=== PATIENT | female | born 1970 ===

== ENCOUNTER 2017-11-12 14:43 | Emergency (ER) | payer SELFPAY ==
[2017-11-12 14:45] VITALS: BMI 28.1
[2017-11-12] MEDS: Albuterol-Ipratrop 3 mg / 0.5 (3 ml) UD IH SCH ×3 (14:55→15:30)
--- NOTE | 2017-11-12 14:59 | ED PDOC ---
Arrival/HPI - General Chief Complaint: Shortness Of Breath Time Seen by Provider: 11/12/17 14:58 - History of Present Illness Narrative History of Present Illness (Text): 47 year old F c Past medical history asthma p/w dyspnea x 1-2 hours, which she states is the same as her previous asthma. She was started on duoneb immediately upon arrival and at the time of my examination, patient states she feels much better. Denies fever, vomiting, leg swelling. Past Medical History - Cardiac Hx Cardiac Disorders: No - Pulmonary Hx Respiratory Disorders: Yes Hx Asthma: Yes - Neurological Hx Neurological Disorder: No - HEENT Hx HEENT Disorder: No - Renal Hx Renal Disorder: No - Endocrine/Metabolic Hx Endocrine Disorders: No - Hematological/Oncological Hx Blood Disorders: No - Integumentary Hx Dermatological Disorder: No - Musculoskeletal/Rheumatological Hx Musculoskeletal Disorders: No - Gastrointestinal Hx Gastrointestinal Disorders: No - Genitourinary/Gynecological Hx Genitourinary Disorders: No - Psychiatric Hx Psychophysiologic Disorder: No Hx Substance Use: No - Surgical History Hx Section: Yes Family/Social History Family/Social History: No Known Family HX Smoking Status: Never Smoked Hx Alcohol Use: No Hx Substance Use: No Allergies/Home Meds Allergies/Adverse Reactions: Allergies No Known Allergies Allergy (Verified 11/12/17 14:44) Review of Systems - Physician Review All systems were reviewed & negative as marked: Yes - Review of Systems Constitutional: absent: Fevers Gastrointestinal: absent: Vomiting Physical Exam - Physical Exam Narrative Physical Exam (Text): Gen: NAD Head: NC Eyes: No icterus ENT: MMM Neck: Supple Chest: No tenderness CV: Regular rate Lungs: Diffuse wheezing Abd: Soft, NT Back: No CVA tenderness Skin: No rash Extremities: No leg edema Neuro: Alert, no focal deficit 11/12/17 15:34 Vital Signs Temp Pulse Resp BP Pulse Ox 11/12/17 15:00 20 97 11/12/17 14:50 97.6 F 92 H 20 113/76 98 Medical Decision Making ED Course and Treatment: Duoneb x 3, prednisone, re-evaluation. Chest X-Ray to exclude PNA. Patient refused Chest X-Ray. Will discharge home, patient states she feels much better. Return to emergency department for worsening breathing or any other problem. - RAD Interpretation Radiology Orders: 09/03/18 14:59 CHEST PORTABLE [RAD] Stat - Medication Orders Current Medication Orders: Discontinued Medications Albuterol/Ipratropium (Duoneb 3 Mg/0.5 Mg (3 Ml) Ud) 3 ml IH Q15M WILLY Stop: 11/12/17 15:31 Last Admin: 11/12/17 15:30 Dose: 3 ml Prednisone (Prednisone Tab) 60 mg PO STAT ONE Stop: 11/12/17 15:02 Last Admin: 11/12/17 15:07 Dose: 60 mg Disposition/Present on Arrival - Present on Arrival Any Indicators Present on Arrival: No History of DVT/PE: No History of Uncontrolled Diabetes: No Urinary Catheter: No History of Decub. Ulcer: No History Surgical Site Infection Following: None - Disposition Have Diagnosis and Disposition been Completed?: Yes Diagnosis: Asthma exacerbation Disposition: HOME/ ROUTINE Disposition Time: 15:34 Patient Plan: Discharge Condition: STABLE Discharge Instructions (ExitCare): Asthma in Adults Prescriptions: Albuterol HFA [Ventolin HFA 90 mcg/actuation (8 g)] 2 puff IH Q6 #1 inhaler Prednisone [Deltasone] 3 tab PO DAILY #12 tablet Forms: [employer] (Czech)
[2017-11-12 15:19] VITALS: RESP 20
[2017-11-12 15:34] VITALS: TEMP 97.6
[2017-11-12 15:47] VITALS: BP 119/79; PULSE 90; O2SAT 99
== END 2017-11-12 15:46 | disposition home or self-care (01) ==
LOC: ED 14:43
DX: J45.901 Unspecified asthma with (acute) exacerbation (principal)